=== PATIENT | female | born 1965 | race Caucasian/White ===

== ENCOUNTER 2018-11-02 00:35 | Inpatient (IN) ==
[2018-11-02] MEDS ORDERED: MORPHINE IV ONE (00:54)
[2018-11-02] MEDS ORDERED: ZOFRAN IV ONE (00:59)
[2018-11-02] MEDS ORDERED: MORPHINE ONE (01:00)
[2018-11-02] MEDS ORDERED: FENTANYL IV ONE (02:26)
[2018-11-02] MEDS ORDERED: KETAMINE IV ONE (03:06)
--- NOTE | 2018-11-02 05:15 | PROVIDER DOCUMENTATION ---
This chart was entered by Armida Hemphill Scribe, acting as scribe for Earnest Melissa MD. HPI-Musculoskeletal Pain/Inj - GENERAL Chief Complaint: Extremity Injury Stated Complaint: RIGHT ANKLE Fx, FALL Time Seen by Provider: 11/02/18 00:39 Source: patient - HX OF PRESENT ILLNESS-MUSKULOSKELTAL Nature of Presenting Problem: Pt sts that she was walking on a ramp at home when she slipped and caught her R ankle. Pt has been drinking this evening. Quality of Pain: reports: aching Severity in ED: moderate Onset/Duration: just prior to arrival Timing: still present Modifying Factors: improves with: nothing Locality of Occurance: Home Similar Symptoms Previously?: No Recently seen or treated by another doctor?: No - FALL INJURY Location of Pain/Injury: reports: lower extremity (R ankle) Pain Radiation: reports: no radiation Reason for Fall: reports: lost balance, slipped Symptoms prior to fall:: reports: none Loss of Consciousness: no loss of consciousness Injury Associated Symptoms: reports: denies symptoms - LOWER EXTREMITY PAIN/INJURY Lower Extremities Pain: ankle: right Context / Method of Injury: reports: fell Associated Symptoms: reports: denies symptoms Review of Systems - Adult - REVIEW OF SYSTEMS - ADULT Constitutional: reports: no symptoms reported. denies: chills, fever Eyes: reports: no symptoms reported Ears, Nose, Mouth & Throat: reports: no symptoms reported Cardiovascular: reports: no symptoms reported Respiratory: reports: no symptoms reported. denies: cough Gastrointestinal: reports: no symptoms reported Genitourinary: reports: no symptoms reported Musculoskeletal: reports: no symptoms reported Integumentary: reports: no symptoms reported Neurological: reports: no symptoms reported. denies: dizziness/vertigo, headache/migraines Psychiatric: reports: no symptoms reported Endocrine: reports: no symptoms reported Hematologic/Lymphatic: reports: no symptoms reported Allergic/Immunologic: reports: no symptoms reported All Other Systems: Reviewed and Negative Past History - Adult - PAST MEDICAL HISTORY-ADULT Review of Records: reports: Old Records Reviewed, Nursing Assessment Review, Medications Reviewed, Social history reviewed & non-contributory. Major Childhood Illnesses: reports: denies history Cardiovascular: reports: HTN Respiratory: reports: denies history Gastrointestinal: reports: denies history Obstetrical/Gynecological: reports: denies history Genitourinary: reports: denies history Musculoskeletal: reports: denies history Neurological: reports: denies history Psychiatric: reports: anxiety Endocrine/Immune: reports: denies history Other Conditions: reports: denies history - PRIOR SURGERIES/PROCEDURES Surgical/Procedure History: reports: other (heart ablation) - IMMUNIZATION STATUS Childhood Immunizations: See Nurse Assessment Flu Vaccine: See Nurse Assessment - FAMILY HISTORY Family History: reviewed, not pertinent - SOCIAL HISTORY Smoking: cigarettes, less than 1 pack/day Provider spent 3-5 mins advising pt. on dangers of tobacco.: Discussed manners to quit use, and f/u contacts for add'l counseling. Substance Use: none/never Alcohol Use Frequency: once a week Living Situation: family Physical Exam-Injury Related - Physical Exam-Injury Related Initial Vital Signs Reviewed: Yes General Appearance: appears well, alert, no apparent distress Eyes: PERRL/EOMI, pink conjunctivae Head, Ears, Nose, Mouth & Throat: normocephalic/atraumatic, moist mucous membranes, normal ENT inspection, TMs normal, pharynx normal Neck: non-tender, full range of motion, supple, normal inspection Respiratory: lungs clear Cardiovascular: tachycardia Extremity: deformity, swelling, tenderness, other (R ankle) Integumentary: normal color, warm/dry Neurologic: grossly normal Psych/Mental Status: normal mood/affect, normal thought content, normal thought process, oriented x 3 - Glascow Coma Score Best Eye Response ([place]az[place]): (4) open spontaneously Best Verbal Response (Gena): (5) oriented Best Motor Response (Gena): (6) obeys commands Gena Total: 15 Progress - PLAN OF CARE/RESULTS Progress/Plan/Lab Results: Vital Signs - 8 hr 11/02/18 00:37 11/02/18 02:36 11/02/18 02:37 Temperature 97.2 F L Pulse Rate 107 H 96 H 97 H Respiratory Rate 16 Blood Pressure 170/99 129/83 O2 Sat by Pulse Oximetry 99 93 L 96 11/02/18 02:40 11/02/18 02:50 11/02/18 03:00 Temperature Pulse Rate 91 H 99 H 92 H Respiratory Rate 10 L 19 Blood Pressure O2 Sat by Pulse Oximetry 93 L 94 L 95 11/02/18 03:02 11/02/18 03:10 11/02/18 03:20 Temperature Pulse Rate 99 H 93 H 104 H Respiratory Rate 22 17 20 Blood Pressure 156/96 O2 Sat by Pulse Oximetry 94 L 95 98 11/02/18 03:21 11/02/18 03:23 11/02/18 03:28 Temperature Pulse Rate 100 H 104 H 113 H Respiratory Rate 24 Blood Pressure 145/80 142/73 142/77 O2 Sat by Pulse Oximetry 97 98 96 11/02/18 03:30 11/02/18 03:33 11/02/18 03:37 Temperature Pulse Rate 102 H 102 H 107 H Respiratory Rate Blood Pressure 117/78 115/67 O2 Sat by Pulse Oximetry 96 97 97 11/02/18 03:40 11/02/18 03:43 11/02/18 03:47 Temperature Pulse Rate 109 H 109 H 107 H Respiratory Rate Blood Pressure 115/71 147/86 O2 Sat by Pulse Oximetry 97 97 93 L 11/02/18 03:49 11/02/18 03:51 11/02/18 03:53 Temperature Pulse Rate 123 H 126 H 121 H Respiratory Rate Blood Pressure 158/99 121/67 O2 Sat by Pulse Oximetry 98 98 99 11/02/18 03:58 11/02/18 04:00 11/02/18 04:02 Temperature Pulse Rate 110 H 108 H 107 H Respiratory Rate Blood Pressure 129/73 151/89 O2 Sat by Pulse Oximetry 98 99 99 11/02/18 04:08 11/02/18 04:10 11/02/18 04:12 Temperature Pulse Rate 110 H 104 H 105 H Respiratory Rate Blood Pressure 120/89 128/82 O2 Sat by Pulse Oximetry 99 99 98 11/02/18 04:17 11/02/18 04:20 11/02/18 04:22 Temperature Pulse Rate 103 H 104 H 97 H Respiratory Rate Blood Pressure 132/77 133/76 O2 Sat by Pulse Oximetry 97 97 98 11/02/18 04:30 11/02/18 04:32 11/02/18 04:40 Temperature Pulse Rate 97 H 94 H 97 H Respiratory Rate Blood Pressure 125/77 O2 Sat by Pulse Oximetry 98 99 98 11/02/18 04:47 Temperature Pulse Rate 93 H Respiratory Rate Blood Pressure 126/78 O2 Sat by Pulse Oximetry 98 Orders Category Date Time Status Ice Pack to affected area DIRECTED Care 11/02/18 00:46 Active Stirrup Ankle Splint DIRECTED Care 11/02/18 02:30 Active ANKLE COMPLETE RIGHT [RAD] Stat Exams 11/02/18 00:46 Taken ANKLE COMPLETE RIGHT [RAD] Stat Exams 11/02/18 03:53 Taken LOWER LEG-RIGHT [RAD] Stat Exams 11/02/18 01:17 Taken Fentanyl Med 11/02/18 02:26 Discontinued 100 microgm IV NOW ONE Ketamine Med 11/02/18 03:06 Discontinued 75 mg IV NOW ONE Morphine Med 11/02/18 01:00 Discontinued 4 mg .ROUTE .STK-MED ONE Morphine Med 11/02/18 00:54 Discontinued 4 mg IV NOW ONE Ondansetron [Zofran] Med 11/02/18 00:59 Discontinued 4 mg IV NOW ONE Pt has a distal fibular fracture dislocation, pt was placed in stirup splint, repeat xray shows improved dislocation but it is still dislocated, spoke to Dr. Cedillo and will admit to his service, he will operate later today Procedures - SPLINTING Right Lower Extremity Pre-Procedure Neurovascular Exam: Intact Pre-Fabricated Splint: Velcro Splint Application (Hand-Made): Stir-Up Applied By: ED Physician Assisted By: public relations account executive Post Procedure Neurovascular Exam: Intact - PROCEDURAL SEDATION Procedure, Risk, Benefits and Alternatives discussed with:: Patient Consent Form Signed?: Yes Sedation type:: moderate Prior complications to general anesthesia?: No Prior complications to procedural sedation?: No ASA Classification Score: P1. Normal healthy patient. Airway Physical Exam: normal anatomy Mallampati Classification Score:: Cls 1. Soft palate, ant/post tonsillar pillars , and uvula visible. Plan explained to:: patient Preparation: consent signed Sedation: fentanyl, ketamine Reversal: none Complications during/after procedure?: none Intra-service time:: 30 minutes or less Departure - Departure Date of Disposition Decision: 11/02/18 Time of Disposition Decision: 05:14 DIAGNOSIS: Fracture of distal fibula Qualifiers: Encounter type: initial encounter Fracture type: closed Fracture morphology: unspecified fracture morphology Laterality: right Qualified Code(s): S82.831A - Other fracture of upper and lower end of right fibula, initial encounter for closed fracture Disposition: ADMITTED INPATIENT 09 Certified Medical Emergency: Emergent Condition: Stable Referrals and Follow-Ups: Vladimir Mercado MD [Primary Care Provider] - Discharge Education: Steps to Quit Smoking, [id number], Cast or Splint Care, Adult, [id number], Ankle Fracture, Moderate Conscious Sedation, Adult, Moderate Conscious Sedation, Adult, Care After - Critical Care Note This patient required my direct & personal management of CC.: Yes Total Time (mins): 34 Critical Care Statement: This patient required my direct personal management to treat or rule out processes, the absence of which, could potentiallly result in sudden, clinically significant life or limb threatening deterioration. Attestation - Physician/ GABI Attestation Patient care was provided by Advanced Practice Provider:: No The physician spent face to face time with patient:: Yes Advanced Practice Provider documentation review:: Supervising physician onsite and consulted in the evaluation and care of this patient. The physician did have a face to face encounter with the patient. This chart was documented by the indicated scribe, (Armida Hemphill, Real) and accurately reflects the services I performed and decisions made by me, Earnest Melissa MD, as attested by the provider's signature.
[2018-11-02] MEDS ORDERED: DILAUDID IM PRN (05:16)
[2018-11-02] MEDS ORDERED: FLU VACCINE IM ONE (06:58)
[2018-11-02] MEDS: MORPHINE IV PRN ×4 (07:05→13:53)
--- NOTE | 2018-11-02 08:32 | Diag Imaging Result Doc PS360 ---
EXAM: ANKLE COMPLETE RIGHT INDICATION: post reduction TECHNIQUE: 2 views COMPARISON: 11/02/2018 FINDINGS: There has been a decrease in the posterior angulation and displacement of the distal fibular fracture fragment status post reduction attempt. There is also less displacement of the fracture fragment at the posterior aspect of the distal tibia. However, the distal tibia remains dislocated anteriorly with respect to the talus. Bandaging or casting material is now seen around the ankle. Surrounding soft tissues are grossly unremarkable by plain radiograph. IMPRESSION: Improvement of alignment of the distal fracture fragments as described. However, the distal tibia remains dislocated with respect to the talus. Electronically signed by Gabriele Ortega 11/02/2018 8:29 AM
--- NOTE | 2018-11-02 08:45 | Diag Imaging Result Doc PS360 ---
EXAM: LOWER LEG-RIGHT INDICATION: fracture TECHNIQUE: 2 views COMPARISON: None. FINDINGS: Note that the distal tibia and fibula and the ankle are not included in this radiograph. Please see separate dedicated right ankle radiograph report performed at the same time for details of a distal tibia and fibular fracture. There is no discrete fracture, dislocation, or significant intrinsic osseous lesion involving the remainder of the mid and upper tibia and fibula. The visualized joint spaces are essentially unremarkable. The surrounding soft tissues are essentially unremarkable. IMPRESSION: No evidence of acute osseous abnormality involving the mid and upper tibia and fibula. Please see separate ankle radiograph report for details of the distal fractures. Electronically signed by Gabriele Ortega 11/02/2018 8:43 AM
--- NOTE | 2018-11-02 08:47 | Diag Imaging Result Doc PS360 ---
EXAM: ANKLE COMPLETE RIGHT INDICATION: extremity injury TECHNIQUE: 3 views COMPARISON: None. FINDINGS: There is a fracture involving the distal fibular shaft with mild comminution. There is moderate posterior displacement of the of the distal fracture fragment. There is also a fracture of the posterior corner of the distal tibia with posterior displacement. There is widening of the medial ankle mortise and there is dislocation of the distal tibia anteriorly with respect to the talus. There is mild soft tissue edema around the lower leg and ankle. IMPRESSION: Fracture/dislocation of the distal tibia and fibula as described. Electronically signed by Gabriele Ortega 11/02/2018 8:45 AM
[2018-11-02] MEDS ORDERED: XYLOCAINE-MPF 2% ONE (12:40)
[2018-11-02] MEDS ORDERED: FENTANYL ONE (12:40)
[2018-11-02] MEDS ORDERED: DIPRIVAN 1% ONE (12:40)
--- NOTE | 2018-11-02 13:21 | HISTORY AND PHYSICAL ---
DATE OF ADMISSION: 11/02/2018 CHIEF COMPLAINT: Leg pain. HISTORY OF PRESENT ILLNESS: Ms ferraro is a 53-year-old female who fell at home last night walking up a ramp at her house and twisted her ankle. She had a lot of pain and ended up coming to the ER where she was diagnosed with an ankle fracture. Closed reduction was performed and I was called to evaluate the patient. PAST MEDICAL HISTORY: Hypertension. PAST SURGICAL HISTORY: Heart ablation. SOCIAL HISTORY: She smokes less than a pack a day cigarettes. Occasional alcohol use. MEDICATIONS: Per the medical record. ALLERGIES: Bananas and other fruits. REVIEW OF SYSTEMS: Positive for this right ankle pain. All other systems are essentially negative. PHYSICAL EXAMINATION: General: Well-developed, well-nourished female. She is in no acute distress. Head and Neck: Normocephalic, atraumatic. Respirations: Nonlabored breathing. Cardiovascular: Regular rate. Abdomen: Nondistended. Right lower extremity: Splint is clean, dry, and intact. She is able to dorsiflex and plantar flex the toes. She has good sensation to light touch to the toes with good capillary refill to the toes. RADIOGRAPHS: The first set of radiographs show a posterior ankle dislocation with a distal fibula fracture and posterior malleolus fracture. Postreduction film shows still a posterior ankle dislocation. ASSESSMENT: Right posterior ankle dislocation. PLAN: I discussed with Ms. Ferraro about operative intervention today. I went over with her the procedure, risks, benefits, and potential complications. Risks include, but are not limited to infection, wound healing problems, damage to nerves, arteries, veins, numbness, malunion, nonunion, hardware related issues, continued pain, DVT, and anesthesia related risks. After discussing these with the patient, she expressed understanding and wished to proceed. She is n.p.o. This will be a right ankle open reduction and internal fixation, and possible syndesmosis open reduction and internal fixation. We will plan on getting this done today. She is nonweightbearing to the right lower extremity until surgery. cc: Manny Cedillo MD
[2018-11-02] MEDS ORDERED: KEFZOL 2 GM/D5W 4 GM/100 ML IVPB ONE (14:12)
[2018-11-02] MEDS ORDERED: VERSED ONE (14:31)
[2018-11-02] MEDS ORDERED: DECADRON ONE (14:41)
[2018-11-02] MEDS ORDERED: ZOFRAN ONE (14:41)
[2018-11-02] MEDS ORDERED: DILAUDID ONE (15:41)
[2018-11-02] MEDS ORDERED: TORADOL ONE (15:48)
[2018-11-02] MEDS: DILAUDID ONE ×4 (16:06→16:22)
[2018-11-02] MEDS ORDERED: PERCOCET-10 ONE (16:47)
--- NOTE | 2018-11-02 18:21 | OPERATIVE NOTE ---
PROCEDURE DATE: 11/02/2018 PREOPERATIVE DIAGNOSES: 1. Right comminuted distal fibular fracture. 2. Right posterior malleolar fracture. 3. Right ankle dislocation. 4. Right deltoid tear. POSTOP DIAGNOSES: 1. Right comminuted distal fibular fracture. 2. Right posterior malleolar fracture. 3. Right ankle dislocation. 4. Right deltoid tear. PROCEDURES: 1. Right open reduction, internal fixation distal fibula. 2. Right closed reduction and nonoperative treatment posterior malleolus fracture. 3. Right open deltoid repair. SURGEON: Dr. Manny Cedillo. MEAT SMOKER: None. ANESTHESIA: General with LMA. IMPLANTS: 1. Medline 09/05 tubular plate and screws. 2. [employer] juggernaut x2. DISPOSITION: PACU hemodynamically stable. INDICATION FOR PROCEDURE: Ms. Ferraro 53-year-old female who injured her ankle last night. She came into the ER, underwent closed reduction per the ER staff. They were unable to get a concentric reduction so admitted her to perform open reduction, internal fixation of the ankle today. I went over with her the procedure, risks, benefits, potential complications. She expressed understanding wished to proceed. DESCRIPTION OF THE PROCEDURE: Ms. Ferraro was identified in preoperative holding area. The right ankle was marked as correct surgical site. She was then wheeled to the operating room, placed supine on the operating table. All bony prominences well padded. She was induced under general anesthesia. LMA was placed. Tourniquet placed to the right thigh. Right lower extremity then prepped with chlorhexidine gluconate scrub and then ChloraPrep and draped in normal sterile fashion. Surgical pause was performed. We identified the correct patient, correct side, the correct procedure. Preop antibiotics were given. Esmarch was used to exsanguinate the right lower extremity and tourniquet was inflated 300 mmHg. Total tourniquet time was just over an hour. Started with a lateral incision over the distal fibula. Dissection was carried down. We identified the superficial peroneal nerve proximally and protected it throughout the entire case. She actually had 2 fractures of that distal fibula so there was a segmental piece. There was the Bay C and then more of a Bay B fracture distally. I attempted to put a lag screw in that Bay C fragment but unfortunately that medial side was a little bit comminuted and I was not able to get a good purchase there so ended up just using a bony reduction clamp, I clamped it all in and then used a posterior 1/3 tubular plate and that buttressed and reduced both fractures very nicely. I put 3 screws proximally and 3 screws in that segmental piece and a screw distally and everything actually lined up really well. We had our length restored on fluoroscopic imaging and the joint space actually looked really good at that point as well. After I fixed the fibula I then performed external rotation stress test and she did open up medially. I then made incision over the medial malleolus. Dissection was carried down. The deltoid was completely avulsed off, especially anteriorly but all around to the tip as well so I then irrigated the joint out copiously with normal saline. I did not see any osteochondral defects. I then put 2 JuggerKnot suture anchors in and was able to repair the deltoid back to bone and I reinforced that with 0 Vicryl on top. After this the ankle was nice and stable to exam. Fluoroscopic imaging showed we had a concentric reduction of the ankle. External rotation stress view showed that we had concentric reduction with no diastasis. Lateral view showed that the posterior malleolar piece had been reduced down, we reduced the ankle and fixed it and so I did not feel we needed to put any hardware in that posterior malleolar piece since it was pretty small. We then closed everything layer fashion 0 Vicryl for the deep layer, 2-0 Vicryl for the subcutaneous and nylon on the skin. Adaptic, 4 x 4s, ABD, soft roll, posterior splint was applied. Tourniquet was let down. The patient had good capillary refill return to the toes. She was then awoke from general anesthesia, moved her own bed and taken to PACU stable condition. Postop she will be nonweightbearing right lower extremity. She will be discharged today and I will see her in a week in clinic. cc: Manny Cedillo MD
--- NOTE | 2018-11-02 20:26 | DISCHARGE SUMMARY ---
ADMISSION DATE: 11/02/2018 DISCHARGE DATE: 11/03/2018 PREP DIAGNOSIS: Right ankle fracture-dislocation. POSTOP DIAGNOSIS: Right ankle fracture-dislocation. SURGERY: Open reduction internal fixation, right ankle on 11/02/2018. HOME MEDICATIONS: Continue home medications. DISCHARGE MEDICATIONS: Gave her Ecotrin 325 mg p.o. b.i.d. for DVT prophylaxis and Percocet 5/325 dispense #40 for pain control. DISPOSITION: Home. HOSPITAL COURSE: Ms. Ferraro was admitted after failed reduction in the ER. Took her to the operating room on 11/02/18 for surgical intervention get the ankle stable. She has done well and she will be discharged home on 11/03/18. I will see her in a week in clinic. cc: Manny Cedillo MD MTDD
[2018-11-03] MEDS: PERCOCET-5 PO PRN ×2 (01:19→08:32)
[2018-11-03 07:24] VITALS: BP 160/91
--- NOTE | 2018-11-03 09:43 | PROGRESS NOTE ---
DATE: 11/03/2018 SUBJECTIVE: Ms. Ferraro is lying in bed this morning. Pain is a lot better controlled. She is feeling pretty good overall. OBJECTIVE: Right lower extremity exam: Splint is clean, dry and intact. She is able to dorsiflex and plantarflex the toes. She has good sensation and light touch to the toes. ASSESSMENT: Status post right ankle open reduction-internal fixation. PLAN: I think Ms. Ferraro is doing well. She is going to be discharged home today. She will follow up with me in 1 week. She is nonweightbearing right lower extremity. cc: Manny Cedillo MD
[2018-11-03] MEDS ORDERED: PERIDEX MT SCH (21:00)
== END 2018-11-03 11:09 | disposition home or self-care (01) | DRG 494 ==
LOC: ED 00:35 → 4N 06:06
PROVIDERS: ADMIT Orthopaedic Surgery; ATTEND Orthopaedic Surgery
CPT/HCPCS: 73590; 73610; 76000; 90686; 94761; 94799; 96374; 96375; 99285; A9270; J0690; J1100; J1170; J1885; J2250; J2270; J2405; J3010